=== PATIENT | female | born 1940 | race African-American/Black ===

== ENCOUNTER 2021-07-13 00:58 | Inpatient (IN) | payer OTHER ==
[~2021-07-13] VITALS: Ht 165.1 cm; Wt 58.5 kg
[2021-07-13 03:50] LABS: BASOPHILS % 0.3 % (0.0-2.0); EOSINOPHILS % 0.2 % (0.0-5.0); HEMATOCRIT. 34.6 % (36.0-48.0); HEMOGLOBIN. 11.2 g/dL (12.0-16.0); LYMPHOCYTES % 33.1 % (20.0-50.0); MEAN CORPUSCULAR VOLUME 89.8 fL (81.0-99.0); MEAN PLATELET VOLUME 7.4 fl (7.4-10.4); MONOCYTES % 2.8 % (2.0-8.0); NEUTROPHILS % 63.6 % (40.0-76.0); PLATELET 339 x1000/uL (130-400); RED BLOOD CELL COUNT 3.86 mill/uL (4.2-5.4)
[2021-07-13 03:55] LABS: CHLORIDE 107 mEq/L (98-107)
[2021-07-13 04:08] LABS: CLARITY URINE CLOUDY (CLEAR); COLOR URINE YELLOW (YELLOW); KETONES URINE TRACE (NEGATIVE); LEUKOCYTE ESTERASE URINE 3+ (NEGATIVE); NITRITE URINE NEGATIVE (NEGATIVE); OCCULT BLOOD URINE TRACE (NEGATIVE); PROTEIN URINE 1+ (NEGATIVE); SPECIFIC GRAVITY URINE 1.029 (1.005-1.030)
[2021-07-13] MEDS ORDERED: AZITHROMYCIN 500 MG in DEXT 5% WATER 250 ML IV SCH (04:45)
[2021-07-13] MEDS ORDERED: CEFTRIAXONE 1 G PREMIX 50 ML IV ONE (04:45)
[2021-07-13] MEDS ORDERED: ENOXAPARIN 60MG/0.6ML SYR SUBCUT ONE (06:30)
[2021-07-13] MEDS ORDERED: IOHEXOL-350 100 ML BOTTLE ONE (06:54)
[2021-07-13] MEDS ORDERED: NITROGLYCERIN 0.4MG TABLET SL SL PRN (10:45)
[2021-07-13] MEDS ORDERED: ONDANSETRON HCL 4MG/2ML INJ IV PRN (10:45)
[2021-07-13] MEDS ORDERED: ACETAMINOPHEN 325MG TABLET PO PRN ×2 (10:45)
[2021-07-13] MEDS ORDERED: MAGNESIUM/ALUMINUM HYDROXIDE/SIMETHICONE 30ML UDC PO PRN (10:45)
[2021-07-13] MEDS ORDERED: GUAIFENESIN 200MG/10ML SUGAR FREE UDC PO PRN (10:45)
[2021-07-13] MEDS ORDERED: CLONIDINE 0.1MG TABLET PO PRN (10:45)
[2021-07-13] MEDS ORDERED: DOCUSATE SODIUM 100MG CAPSULE PO PRN (10:45)
[2021-07-13] MEDS ORDERED: KETOROLAC 15MG/ML VIAL IV PRN (10:45)
[2021-07-13] MEDS: FAMOTIDINE 20MG TABLET PO SCH (12:55)
[2021-07-13] MEDS: CHOLECALCIFEROL (D3) 1000 UNIT TABLET PO SCH (12:55)
[2021-07-13] MEDS: ZINC SULFATE 220 MG ( 50 ) CAPSULE PO SCH (12:55)
[2021-07-13] MEDS: ASCORBIC ACID 500 MG TABLET PO SCH ×2 (12:55→20:52)
[2021-07-13] MEDS: ASPIRIN 325MG EC TABLET PO SCH (12:56)
[2021-07-13] MEDS: ENOXAPARIN 60MG/0.6ML SYR SUBCUT SCH ×2 (12:56→21:03)
[2021-07-13 17:00] LABS: VITAMIN B12 SERUM > 2000.0 pg/mL (211-911)
[2021-07-13] MEDS ORDERED: ZOLPIDEM TARTRATE 5MG TABLET PO PRN (21:00)
[2021-07-13 22:21] LABS: CREATINE KINASE 130 IU/L (26-192)
[2021-07-13 22:22] LABS: CREATINE KINASE MB FRACTION < 1.0 ng/mL (0.5-3.6)
[2021-07-13 22:25] VITALS: BP 108/60
[2021-07-14 00:17] VITALS: BP 120/67
[2021-07-14] MEDS ORDERED: AZITHROMYCIN 500 MG in DEXT 5% WATER 250 ML IV SCH (06:00)
[2021-07-14 08:00] VITALS: BP 115/65
[2021-07-14] MEDS: ZINC SULFATE 220 MG ( 50 ) CAPSULE PO SCH (09:12)
[2021-07-14] MEDS: CHOLECALCIFEROL (D3) 1000 UNIT TABLET PO SCH (09:12)
[2021-07-14] MEDS: ASCORBIC ACID 500 MG TABLET PO SCH ×2 (09:12→22:22)
[2021-07-14] MEDS: FAMOTIDINE 20MG TABLET PO SCH (09:12)
[2021-07-14] MEDS: ASPIRIN 325MG EC TABLET PO SCH (09:12)
[2021-07-14] MEDS: ENOXAPARIN 60MG/0.6ML SYR SUBCUT SCH ×2 (09:13→22:21)
[2021-07-14] MEDS: AZITHROMYCIN 500 MG in DEXT 5% WATER 250 ML IV SCH (11:38)
[2021-07-14 12:00] VITALS: BP 110/66
[2021-07-14 13:57] LABS: CLARITY URINE CLOUDY (CLEAR); COLOR URINE YELLOW (YELLOW); PH URINE 5.5 (4.5-8.0); PROTEIN URINE 2+ (NEGATIVE); SPECIFIC GRAVITY URINE 1.033 (1.005-1.030)
[2021-07-14 13:58] LABS: KETONES URINE TRACE (NEGATIVE); LEUKOCYTE ESTERASE URINE 3+ (NEGATIVE); NITRITE URINE NEGATIVE (NEGATIVE); OCCULT BLOOD URINE NEGATIVE (NEGATIVE)
[2021-07-14] MEDS: CEFTRIAXONE 1,000 MG in DEXTROSE 5% WATER 50 ML IV SCH (14:08)
[2021-07-14 14:53] LABS: *AMPHETAMINES SCREEN URINE NEGATIVE (NEGATIVE); *BARBITURATES SCREEN URINE NEGATIVE (NEGATIVE)
[2021-07-14 14:54] LABS: *BENZODIAZEPINES SCREEN URINE NEGATIVE (NEGATIVE); *COCAINE SCREEN URINE NEGATIVE (NEGATIVE); CANNABINOID URINE SCREEN NEGATIVE (NEGATIVE); METHADONE URINE SCREEN NEGATIVE (NEGATIVE); OPIATES URINE SCREEN NEGATIVE (NEGATIVE); PHENCYCLIDINE URINE SCREEN NEGATIVE (NEGATIVE)
[2021-07-14 16:00] VITALS: BP 112/59
[2021-07-14 20:00] VITALS: BP 111/51
[2021-07-14] MEDS ORDERED: CEFTRIAXONE 1 G PREMIX 50 ML IV SCH (21:00)
[2021-07-15 04:00] VITALS: BP 118/60
[2021-07-15 08:00] VITALS: BP 106/54
[2021-07-15] MEDS: AZITHROMYCIN 500 MG in DEXT 5% WATER 250 ML IV SCH (08:05)
[2021-07-15] MEDS: ENOXAPARIN 60MG/0.6ML SYR SUBCUT SCH ×2 (08:10→21:00)
[2021-07-15] MEDS: ASCORBIC ACID 500 MG TABLET PO SCH ×2 (08:10→21:00)
[2021-07-15] MEDS: ZINC SULFATE 220 MG ( 50 ) CAPSULE PO SCH (08:10)
[2021-07-15] MEDS: CHOLECALCIFEROL (D3) 1000 UNIT TABLET PO SCH (08:10)
[2021-07-15] MEDS: FAMOTIDINE 20MG TABLET PO SCH (08:10)
[2021-07-15] MEDS: ASPIRIN 325MG EC TABLET PO SCH (08:11)
[2021-07-15] MEDS: CEFTRIAXONE 1,000 MG in DEXTROSE 5% WATER 50 ML IV SCH (11:45)
[2021-07-15 11:55] VITALS: BP 118/58
[2021-07-15 15:55] VITALS: BP 128/54
[2021-07-15 19:59] VITALS: BP 111/58
[2021-07-16 08:00] VITALS: BP 149/86
[2021-07-16] MEDS: ASPIRIN 325MG EC TABLET PO SCH (08:19)
[2021-07-16] MEDS: ZINC SULFATE 220 MG ( 50 ) CAPSULE PO SCH (08:19)
[2021-07-16] MEDS: FAMOTIDINE 20MG TABLET PO SCH (08:29)
[2021-07-16] MEDS: ASCORBIC ACID 500 MG TABLET PO SCH ×2 (08:30→20:57)
[2021-07-16] MEDS: AZITHROMYCIN 500 MG TABLET PO SCH (08:32)
[2021-07-16] MEDS: CHOLECALCIFEROL (D3) 1000 UNIT TABLET PO SCH (08:34)
[2021-07-16] MEDS: CEFTRIAXONE 1,000 MG in DEXTROSE 5% WATER 50 ML IV SCH (08:36)
[2021-07-16] MEDS: ENOXAPARIN 60MG/0.6ML SYR SUBCUT SCH ×2 (08:41→20:57)
[2021-07-16 12:10] VITALS: BP 117/68
[2021-07-16 16:00] VITALS: BP 128/81
[2021-07-16 20:00] VITALS: BP 126/61
[2021-07-17] VITALS: BP 106/47
[2021-07-17 03:50] VITALS: BP 107/54
[2021-07-17 08:00] VITALS: BP 105/54
[2021-07-17] MEDS: CEFTRIAXONE 1,000 MG in DEXTROSE 5% WATER 50 ML IV SCH (10:31)
[2021-07-17] MEDS: ENOXAPARIN 60MG/0.6ML SYR SUBCUT SCH (10:32)
[2021-07-17] MEDS: ASCORBIC ACID 500 MG TABLET PO SCH (10:32)
[2021-07-17] MEDS: ZINC SULFATE 220 MG ( 50 ) CAPSULE PO SCH (10:32)
[2021-07-17] MEDS: AZITHROMYCIN 500 MG TABLET PO SCH (10:32)
[2021-07-17] MEDS: ASPIRIN 325MG EC TABLET PO SCH (10:32)
[2021-07-17] MEDS: CHOLECALCIFEROL (D3) 1000 UNIT TABLET PO SCH (10:32)
[2021-07-17] MEDS: FAMOTIDINE 20MG TABLET PO SCH (10:32)
[2021-07-17 12:00] VITALS: BP 137/62
[2021-07-17 13:12] VITALS: BP 137/62
== END 2021-07-17 18:17 | disposition home or self-care (01) | DRG 871 ==
LOC: ER 00:58 → 6WST 05:50 → EDBEDREQ 06:07 → EDBEDREQTM 06:35 → EDBEDREQSVC 06:35 → EDBEDREQ 06:35 → SUPCPDRO 10:43 → ENRESERV 21:10
PROVIDERS: ADMIT Internal Medicine; ATTEND Internal Medicine
DX: A41.9 Sepsis, unspecified organism (principal); E43 Unspecified severe protein-calorie malnutrition; I26.99 Other pulmonary embolism without acute cor pulmonale; G92.8 Other toxic encephalopathy; J12.9 Viral pneumonia, unspecified; N39.0 Urinary tract infection, site not specified; F33.9 Major depressive disorder, recurrent, unspecified; D63.8 Anemia in other chronic diseases classified elsewhere; R65.20 Severe sepsis without septic shock; Z20.822 Contact with and (suspected) exposure to COVID-19; Z68.21 Body mass index [BMI] 21.0-21.9, adult
CPT/HCPCS: 36415; 71045; 71275; 80053; 80305; 81003; 82550; 82553; 82607; 82746; 83540; 83550; 83605; 83615; 83880; 84145; 84443; 84484; 85025; 87426; 93005; 93306; 93970; 97161; 97165; 99285; C1893; J0456; J0696; J1650; J7060; Q9967